=== PATIENT | female | born 1985 | race Caucasian/White ===

== ENCOUNTER → 2018-06-22 10:51 | Outpatient (CLI) | payer MEDICARE, MEDICAID, SELFPAY ==
[2018-06-22 11:32] LABS: Basophils # 0.1 K/mm3 (0-0.2); Basophils % 0.6 % (0.1-2.0); Eosinophils # 0.2 K/mm3 (0.0-0.4); Eosinophils % 2.3 % (0.1-12.0); Hematocrit 43.7 % (37.0-47.0); Hemoglobin 13.9 g/dL (12.2-16.2); Lymphocytes # 1.9 K/mm3 (0.7-4.5); Mean Corpuscular HGB Conc 31.9 g/dL (31.8-35.4); Mean Platelet Volume 7.4 fl (7.4-10.4); Monocytes # 0.4 K/mm3 (0.1-1.0); Monocytes % 5.7 % (1.7-9.3); Neutrophils # 5.2 K/mm3 (1.8-7.8); Neutrophils % 67.4 % (37.0-80.0); Platelet Count 294 K/mm3 (142-424); Red Blood Count 4.96 M/mm3 (4.20-5.40); Red Cell Distribution Width 13.7 % (11.5-17.5); White Blood Count 7.7 K/mm3 (4.8-10.8)
[2018-06-23 17:19] LABS: Vitamin D 25 Hydroxy 24.7 ng/mL (30.0-100.0)
[2018-06-26 08:22] LABS: Immunoglobulin E, Total 398 IU/mL (0-100)
== END ==
PROVIDERS: Visit Provider Allergy & Immunology
DX: E55.9 Vitamin D deficiency, unspecified (principal); J45.50 Severe persistent asthma, uncomplicated
CPT/HCPCS: 36415; 82652; 82785; 85025

== ENCOUNTER → 2018-08-30 13:52 | Outpatient (CLI) | payer MEDICARE, MEDICAID, SELFPAY ==
[2018-08-30 14:26] LABS: Basophils # 0.1 K/mm3 (0-0.2); Basophils % 0.9 % (0.1-2.0); Eosinophils # 0.2 K/mm3 (0.0-0.4); Eosinophils % 2.8 % (0.1-12.0); Hematocrit 44.7 % (37.0-47.0); Hemoglobin 14.4 g/dL (12.2-16.2); Lymphocytes # 1.7 K/mm3 (0.7-4.5); Lymphocytes % 21.1 % (10-50); Mean Corpuscular HGB Conc 32.3 g/dL (31.8-35.4); Mean Corpuscular Hemoglobin 28.5 pg (27.0-31.2); Mean Corpuscular Volume 88.4 fl (81-99); Mean Platelet Volume 8.1 fl (7.4-10.4); Monocytes # 0.4 K/mm3 (0.1-1.0); Monocytes % 4.9 % (1.7-9.3); Neutrophils # 5.5 K/mm3 (1.8-7.8); Neutrophils % 70.3 % (37.0-80.0); Platelet Count 327 K/mm3 (142-424); Red Blood Count 5.06 M/mm3 (4.20-5.40); Red Cell Distribution Width 13.6 % (11.5-17.5); White Blood Count 7.8 K/mm3 (4.8-10.8)
[2018-08-30 14:53] LABS: Alanine Aminotransferase 19 U/L (12-78); Albumin Level 3.5 gm/dL (3.4-5.0); Alkaline Phosphatase 78 U/L (46-116); Anion Gap 14.8 mEq/L (5-15); Aspartate Amino Transferase 14 U/L (15-37); Bilirubin,Total 0.2 mg/dL (0.2-1.0); Blood Urea Nitrogen 16 mg/dL (7-18); Calcium 9.3 mg/dL (8.5-10.1); Carbon Dioxide 26 mmol/L (21.0-32.0); Chloride 106 mmol/L (98-107); Chol/HDL Ratio 4.2 (1-3.5); Cholesterol 165 mg/dL (140-200); Estimated Glomerular Filt Rate 83 ml/min (>60); GFR (African American) 101 ML/MIN (>60); Globulin 3.5 gm/dl (1.3-3.2); Glucose 96 mg/dL (74-106); HDL Cholesterol 39 mg/dL (29-89); LDL Cholesterol 91 mg/dL (0-130); Potassium 3.8 mmoL/L (3.5-5.1); Sodium 143 mmol/L (136-145); T4 (Thyroxine) 13.2 ug/dl (4.7-13.3); Thyroid Stimulating Hormone 1.47 uIU/ml (0.358-3.740); Triglycerides 175 mg/dL (30-200); VLDL Cholesterol 35 mg/dL (0-40)
[2018-08-31 13:08] LABS: Folate 10.5 ng/mL (>3.0); Vitamin B12 204 pg/mL (232-1245); Vitamin D 25 Hydroxy 35.2 ng/mL (30.0-100.0)
== END ==
PROVIDERS: Visit Provider Physician Assistant
DX: R40.20 Unspecified coma (principal); R53.83 Other fatigue; I10 Essential (primary) hypertension
CPT/HCPCS: 80053; 80061; 82607; 82652; 82746; 84436; 84443; 85025

== ENCOUNTER → 2018-09-08 10:08 | Outpatient (CLI) | payer MEDICARE, MEDICAID, SELFPAY ==
--- NOTE | 2018-09-08 10:12 | CA_ITS ---
PROCEDURE: 2-D M-mode and color Doppler study INDICATIONS FOR THE TEST: Chest pain COPD Heart Murmur+ Tobacco Smoking Palpitations Fatigue Syncope+ Edema Hypertension+Diabetes Mellitus Rheumatic Fever SOB MARTINEZ Obesity Hyperlipidemia Family History HD Additional History PATIENT INFORMATION HEIGHT: 61 WEIGHT:160 GENDER: Female B/P:132/72 2-D/M-MODE INTERPRETATION: 2-D MEASUREMENTS OBSERVED VALUES IN CMS Right Ventricular Dimension (RVDd) 1.5 Interventricular Septum (Thickness)(IVsd) 0.9 Left Ventricular Internal Dimensions(LVIDd) 4.7 Left Ventricular Posterior Wall (Thickness)(LVPWd) 0.6 Aortic Root 1.9 Aortic Cusp Separation 1.6 Left Atrial Dimensions (LAD) 3.8 2D 1. Left atrium is normal size, left ventricle is normal size, there is no concentric left ventricular hypertrophy, visually estimated ejection fraction 55% with no regional wall motion abnormality. 2. The right atrium and right ventricle are normal size and contractility. 3. The aortic valve is thickened and calcified trileaflet aortic valve, there is no restriction the leaflet mobility. 4. The mitral and tricuspid valve are grossly normal. 5. The pulmonic valve is poorly present. 6. No significant pericardial effusion noted. DOPPLER INTERROGATION: Doppler interrogation of the aortic, mitral and tricuspid valvular presence of mild aortic, mild mitral and tricuspid regurgitation, tricuspid regurgitation jet velocity is inadequate for calculation of the right ventricular systolic pressure, diastolic parameters are within normal range. Inferior vena cava is normal size with normal inspiratory collapse. CONCLUSION: 1. Normal left ventricular size, preserved left ventricular systolic function, visually estimated ejection fraction 55% with no regional wall motion abnormality. Diastolic parameters are within normal range. 2. Minimally thickened and calcified aortic valve without Doppler evidence of aortic stenosis, there is mild aortic insufficiency. 3. Mild mitral and tricuspid regurgitation 4. No significant pericardial effusion noted.
== END ==
PROVIDERS: PCP Emergency Medicine; Visit Provider Physician Assistant
DX: R01.1 Cardiac murmur, unspecified (principal)
CPT/HCPCS: 93306

== ENCOUNTER → 2018-09-25 08:57 | Outpatient (CLI) | payer MEDICARE, MEDICAID, SELFPAY | PROVIDERS: Visit Provider Urology | DX: I10 Essential (primary) hypertension (principal); I35.1 Nonrheumatic aortic (valve) insufficiency; R06.02 Shortness of breath; R07.9 Chest pain, unspecified | CPT/HCPCS: 93017 ==

== ENCOUNTER → 2018-10-10 13:53 | Outpatient (CLI) | payer MEDICARE, MEDICAID, SELFPAY | PROVIDERS: PCP Family Medicine; Visit Provider Urology | DX: R55 Syncope and collapse (principal) | CPT/HCPCS: 93270 ==

== ENCOUNTER 2021-12-20 14:00 | Emergency (ER) | payer MEDICARE, MEDICAID, SELFPAY ==
[2021-12-20 14:09] VITALS: BP 185/104; PULSE 66; RESP 15; TEMP 37; O2SAT 99; BMI 24.7
[2021-12-20 14:50] VITALS: BP 169/95; PULSE 66; RESP 15; TEMP 37; O2SAT 99; BMI 24.8
--- NOTE | 2021-12-20 14:50 | HMH.EDUTC ---
[facility] [place] Disposition Clinical Impression: Viral syndrome, Elevated blood pressure reading, Gastroenteritis Disposition: Home, Self-Care Condition on Discharge: Good Instructions: Viral Gastroenteritis, DI for Viral Gastroenteritis -- Adult Additional Instructions: Drink plenty of fluids. Take tylenol or ibuprofen for pain or fever. Take the medications as directed. Follow up with your regular doctor. GO TO THE ER FOR ANY WORSENING SYMPTOMS FOLLOW UP WITH YOUR PRIMARY CARE PHYSICIAN TOMORROW REGARDING YOUR ELEVATED BLOOD PRESSURE. Prescriptions: Ondansetron [Zofran 4mg ODT] 4 mg PO Q8HP PRN #12 tab PRN Reason: Nausea Transmission Status: Received by [facility] Referrals: Rambo Chavez MD [Primary Care Provider] - Time of Disposition: 15:41 Medical Decision Making - Medical Records Medical records reviewed: No: I reviewed the patient's medical records. - Robe Inquiry Pt receiving controlled substance: No Vital Signs: 12/20/21 14:09 12/20/21 14:50 12/20/21 15:43 Temperature 98.6 F 98.6 F 98.6 F Temperature Source Oral Oral Pulse Rate 66 Pulse Rate [Right Radial] 66 66 Respiratory Rate 15 15 15 Blood Pressure 169/95 H Blood Pressure [Right Arm] 185/104 H 169/95 H Blood Pressure Mean [Right Arm] 131 119 Blood Pressure Source [Right Arm] Automatic Cuff Automatic Cuff Blood Pressure Position [Right Arm] Sitting Sitting 02 Sat by Pulse Oximetry 99 99 Oxygen Delivery Method Room Air - Lab Data Lab Results 12/20/21 14:54: Chlamy pneumoniae PCR Not detected, Adenovirus (PCR) Not detected, B. pertussis DNA (PCR) Not detected, Coronavirus OC43 (PCR) Not detected, Coronavirus HKU1 (PCR) Not detected, Coronavirus 229E (PCR) Not detected, SARS-CoV-2 (PCR) Not detected, Coronavirus NL63 (PCR) Not detected, Human Metapneumovir PCR Not detected, Influenza A (H1) PCR Not detected, Influ A (H1N1/09) PCR Not detected, Influenza A (H3) PCR Not detected, Influenza Type A (PCR) Not detected, Influenza Type B (PCR) Not detected, M. pneumoniae (PCR) Not detected, Parainfluenza 1 (PCR) Not detected, Parainfluenza 2 (PCR) Not detected, Parainfluenza 3 (PCR) Not detected, Parainfluenza 4 (PCR) Not detected, RSV (PCR) Not detected, Entero/Rhino (PCR) Not detected [facility] [place] HPI - General Stated complaint: vomiting, weakness, elevated bp Time Seen by Provider: 12/20/21 14:50 Mode of Arrival: Ambulatory Source of Information: Patient Limitations: No Limitations Description of Symptoms (Recalled from Triage Doc. by RN): C/O N/V, sinus drainage, altered smell, elevated BP x2 days. States that she was exposed to mother who has COVID - History of Present Illness Provider Complaint: She is here with c/o of feeling bad for the past 2 days. She has had sinus congestion and a sore scratchy throat. She also has been having elevated blood pressures. She has been prescribed blood pressure medication in the past but she did not take the medication because it made her feel bad at the time. - Related Data Home Medications Medication Instructions Recorded Confirmed montelukast 10 mg tablet 10 mg PO DAILY 30 Days #30 tab 01/31/18 12/31/20 albuterol sulfate 90 mcg/actuation 2 inh INHALATION Q6H PRN 12/18/19 12/31/20 breath activated powder inhaler budesonide-formoterol HFA 160 2 puff INHALATION BID 12/18/19 12/31/20 mcg-4.5 mcg/actuation aerosol inhaler Previous Rx's Medication Instructions Recorded Ondansetron [Zofran 4mg ODT] 4 mg PO Q8HP PRN #12 tab 12/20/21 Allergies Allergy/AdvReac Type Severity Reaction Status Date / Time shellfish derived Allergy Verified 12/20/21 15:08 [facility] History - Hepatitis A Screen Attestation statement:: This patient has been screened for Hepatitis A risk factors. I have reviewed the patient's past medical history: Yes Medical History: Reports:: Anxiety, Asthma, Depression, Heart Murmur, Hypertension Denies:: Diabetes Martha
[2021-12-20 15:03] LABS: Adenovirus,PCR Not Detected (NotDetected); Bordetella Pertussis Not Detected (NotDetected); Chlamydophila Pneumoniae, PCR Not Detected (NotDetected); Coronavirus 19, PCR Not Detected (NotDetected); Coronavirus 229E Not Detected (NotDetected); Coronavirus NL63 Not Detected (NotDetected); Coronavirus OC43 Not Detected (NotDetected); Coronovirus HKU1,PCR Not Detected (NotDetected); Human Metapneumovirus Not Detected (NotDetected); Influenza A, PCR Not Detected (NotDetected); Influenza AH1, 2009 Not Detected (NotDetected); Influenza AH1, PCR Not Detected (NotDetected); Influenza AH3,PCR Not Detected (NotDetected); Influenza B, PCR Not Detected (NotDetected); Mycoplasma Pneumoniae, PCR Not Detected (NotDetected); Parainfluenza 1, PCR Not Detected (NotDetected); Parainfluenza 2, PCR Not Detected (NotDetected); Parainfluenza 3, PCR Not Detected (NotDetected); Parainfluenza 4, PCR Not Detected (NotDetected); Respiratory Syncytial Virus Not Detected (NotDetected); Rhinovirus/Enterovirus Not Detected (NotDetected)
[2021-12-20 15:43] VITALS: BP 169/95; PULSE 66; RESP 15; TEMP 37; O2SAT 99
== END 2021-12-20 15:48 | disposition home or self-care (01) ==
LOC: ER 14:10 → UTC 14:11
PROVIDERS: Emergency Provider Nurse Practitioner Family; PCP Family Medicine
DX: K52.9 Noninfective gastroenteritis and colitis, unspecified (principal); B34.9 Viral infection, unspecified; R03.0 Elevated blood-pressure reading, without diagnosis of hypertension; Z20.822 Contact with and (suspected) exposure to COVID-19; R11.10 Vomiting, unspecified; R53.1 Weakness; R43.8 Other disturbances of smell and taste
CPT/HCPCS: 87581; 87632; 87798; C9803; U0003; U0005

== ENCOUNTER 2022-07-03 15:15 | Emergency (ER) | payer MEDICARE, MEDICAID, SELFPAY ==
[2022-07-03 16:00] VITALS: BP 160/95; PULSE 82; RESP 20; TEMP 37.6; O2SAT 98; BMI 30.8
--- NOTE | 2022-07-03 16:02 | EXP.UTC ---
Discharge Plan Disposition Patient Disposition: Home, Self-Care Condition: Good Prescriptions Prescriptions: New azithromycin [Zithromax] 250 mg tablet 250 mg PO UD DOSE PK Qty: 6 0RF Rx Instructions: Take two (2) tablets today, then one (1) tablet days #2 thru #5 benzonatate [benzonatate] 100 mg capsule 100 mg PO TIDP PRN (Reason: Cough) Qty: 30 0RF methylprednisolone 4 mg Tablets,Dose Pack 4 mg PO DIRECTED Qty: 21 0RF No Action montelukast 10 mg tablet 10 mg PO DAILY 30 Days Qty: 30 albuterol sulfate 90 mcg/actuation aerosol powdr breath activated 2 inh INHALATION Q6H PRN budesonide-formoterol [Symbicort] 160-4.5 mcg/actuation HFA aerosol inhaler 2 puff INHALATION BID Referrals Follow up/Referrals: Rambo Chavez MD [Primary Care Provider] - See instructions Activity Restrictions/Add. Instructions Additional Instructions/Restrictions: Drink plenty of fluids. Take tylenol or ibuprofen for pain or fever. Take the medications as directed. Follow up with your regular doctor. GO TO THE ER FOR ANY WORSENING SYMPTOMS Clinical Impressions Clinical Impression: Otitis media, Sinusitis Instructions Patient Instructions: Sinusitis, DI for Sinusitis Discharge ED Provider: [facility] General Stated complaint: Congestion; ear ache; right side pain Time Seen by Provider: 07/03/22 16:02 History of Present Illness Provider Complaint: She states that for the past 3 days she has had sinus congestion, sore throat, and bilateral ear pain. Related Data Home Medications Medication Instructions Recorded Confirmed montelukast 10 mg tablet 10 mg PO DAILY 30 days #30 tabs 01/31/18 06/29/22 albuterol sulfate 90 mcg/actuation 2 inh inhalation Q6H PRN 12/18/19 06/29/22 breath activated powder inhaler budesonide-formoterol HFA 160 2 puff inhalation BID 12/18/19 06/29/22 mcg-4.5 mcg/actuation aerosol inhaler (Symbicort) Previous Rx's Medication Instructions Recorded azithromycin 250 mg tablet 250 mg PO UD DOSE PK #6 tabs 07/03/22 (Zithromax) benzonatate 100 mg capsule 100 mg PO TIDP PRN Cough #30 caps 07/03/22 methylprednisolone 4 mg tablets in 4 mg PO DIRECTED #21 tabs 07/03/22 a dose pack Allergies Allergy/AdvReac Type Severity Reaction Status Date / Time shellfish derived Allergy Verified 07/03/22 16:13 [facility] Disclaimer: The information contained in this section may have been updated after the patient was seen, as this information can be updated by other users. Medical History Aortic insufficiency Cardiac murmur Chest pain HTN (hypertension) SOB (shortness of breath) Social History Smoking Status: Never smoker alcohol intake: never substance use type: denies use current occupational status: unemployed and disabled Travel in the last 8 weeks: Inside the [place] ROS Obtained: Yes All systems reviewed & no additional complaints except as documented Constitutional Constitutional: Denies chills, Reports fever(s) and Reports poor appetite Eyes Eyes: Denies eye discharge ENT Ears, Nose, Mouth, and Throat: Denies ear discharge, Reports otalgia, Denies hearing loss, Denies sinus pain and Reports sore throat Cardiovascular Cardiovascular: Denies chest pain and Denies dyspnea Respiratory Respiratory: Denies chest congestion, Reports cough and Denies dyspnea Gastrointestinal Gastrointestingal: Denies abdominal pain, diarrhea, nausea or vomiting Musculoskeletal Musculoskeletal: Denies arthralgias Integumentary/Breasts Skin/Breast: Denies rash Physical Exam General General appearance: alert and in no apparent distress Head Head exam: atraumatic, normocephalic and normal inspection Eye Eye exam: Present normal appearance, PERRL and EOMI ENT ENT exam: Present mucous membranes moist and normal external
[2022-07-03 16:46] VITALS: BP 160/95; PULSE 82; RESP 20; TEMP 37.6; O2SAT 98
== END 2022-07-03 16:45 | disposition home or self-care (01) ==
PROVIDERS: Emergency Provider Nurse Practitioner Family; PCP Family Medicine
DX: H66.90 Otitis media, unspecified, unspecified ear (principal); J32.9 Chronic sinusitis, unspecified
CPT/HCPCS: 99212; 99213; G0463

== ENCOUNTER → 2022-08-27 14:04 | Outpatient (CLI) | payer MEDICARE, MEDICAID, SELFPAY ==
--- NOTE | 2022-08-27 14:11 | CA_ITS ---
APPROVED REPORT EXAM: Comprehensive 2D, Doppler, and color-flow Echocardiogram High Frequency Mill Operator: Suzanne Gordon RT(R) Ht: 5 ft 1 in Wt: 161lbs BSA: 1.72 BP: 154/73 mmHg Indications: AI, HTN, murmur, h/o CP 2D Dimensions LVOT 1.78 cm (M/F) 1.5-2.5 LVEF (Chavarria's) 61.90 % F: 54 - 74 LV Volume 86.80 mL F: 46 - 106 LV Volume Index 50.47 mL/m2 F: 29 - 61 LA Volume 23.50 mL LA Volume Index 13.66 mL/m2 (M/F) 16-34 M-Mode Dimensions RVDd 2.72 cm (0.9-2.6) LA Diam 3.83 cm (1.9-4.0) LVDd 4.01 cm (3.5-5.7) Ao Diam 2.35 cm (2.0-3.7) LVDs 2.85 cm (3.5-5.7) IVSd 0.84 cm (0.6-1.1) PWd 0.72 cm (0.6-1.1) EF (Teich) 56.10% FS 28.90% EDV (Teich) 70.40 mL ESV (Teich) 30.90 mL LV Diastology E Decel Time 227.00 (160-240 msec) E/A Ratio 1.3 MED E' 12.60 (< 7 cm/sec) E'/MED E' Ratio 9.52 (>14) LAT E' 14.40 (<10 cm/sec) E/LAT E' Ratio 8.33 (>14) Aortic Valve LVOT Max 133.00 (70-110 cm/s) LVOT VTI 26.11 cm AoV Peak Vladimir. 194.00 (50-130 cm/s) AO Peak GR. 15.10 mmHg AO Mean GR. 7.50 (<5 mmHg) AO VTI 37.73 (18-25 cm) KVNG (VTI) 1.72 (2.5-4.5 cm2) Mitral Valve MV E Max Vladimir. 120.00 (40-130 cm/s) MV A Velocity 95.00 (40-130 cm/s) E/A Ratio 1.26 MV Decel. Time 227.00 (160-240 ms) MV PHT 66.00 ms Left Ventricle Left atrium is mildly enlarged, left ventricle is normal size, estimated ejection fraction 55% with no regional wall motion abnormality, diastolic parameters are within normal range. Right Ventricle Right atrium and right ventricular normal size and contractility. Aortic Valve Aortic valve is minimally thickened, morphology of the aortic valve is not well visualized, there is no aortic stenosis, there is trace aortic insufficiency. Mitral Valve Mitral valve is grossly normal, there is trace mitral regurgitation. Tricuspid Valve Tricuspid grossly normal, there is trace tricuspid regurgitation, tricuspid regurgitation jet velocity is inadequate for calculation of the right ventricular systolic pressure. Pulmonic Valve Pulmonic valve is poorly visualized. Great Vessels Aortic root is normal size. Inferior vena cava is normal size with normal inspiratory collapse. Pericardium No significant pericardial effusion noted. Conclusion 1. Mildly in the left renal normal left ventricular size, estimated ejection fraction 55% with no regional wall motion abnormality, diastolic parameters are within normal range. 2. Trace aortic mitral and tricuspid regurgitation. 3. No significant pericardial effusion noted. 4. Inferior vena cava is normal size with normal inspiratory collapse. Electronically signed by : Oh Menon MD 08/27/2022 16:10:58
== END ==
PROVIDERS: PCP Family Medicine; Visit Provider Physician Assistant
DX: I10 Essential (primary) hypertension (principal); I35.1 Nonrheumatic aortic (valve) insufficiency; R01.1 Cardiac murmur, unspecified
CPT/HCPCS: 93306

== ENCOUNTER 2023-01-13 12:39 | Emergency (ER) | payer MEDICARE, SELFPAY ==
[2023-01-13 12:45] VITALS: BP 165/91; PULSE 66; RESP 16; TEMP 36.8; O2SAT 99; BMI 29.2
--- NOTE | 2023-01-13 12:58 | HMH.EDGENADL ---
Discharge Plan Disposition Patient Disposition: Home, Self-Care Prescriptions Prescriptions: No Action montelukast 10 mg tablet 10 mg PO DAILY 30 Days Qty: 30 albuterol sulfate 90 mcg/actuation aerosol powdr breath activated 2 inh INHALATION Q6H PRN budesonide-formoterol [Symbicort] 160-4.5 mcg/actuation HFA aerosol inhaler 2 puff INHALATION BID Referrals Follow up/Referrals: Cornell Shankar MD [Primary Care Provider] - See instructions Activity Restrictions/Add. Instructions Additional Instructions/Restrictions: You have plantar fasciitis severe right lower extremity. Most importantly need to get good supportive shoes or get orthotic implants as we discussed. You may go to [facility] in [place] they are experts in this area if you would like to have specifically made orthotics for your shoes. Ice the area take anti-inflammatory medications. You may take 800 mg of ibuprofen 3 times a day for the next week to improve your pain. You may take Tylenol as well. Return with any spreading redness injuries or other concerns. Clinical Impressions Clinical Impression: Plantar fasciitis, right Discharge ED Provider: Nagi Linares General Adult HPI General Chief complaint: Extremity Injury, Lower Stated complaint: pain in Rt ankle/leg, no known accident Time Seen by Provider: 01/13/23 12:52 Mode of Arrival: Ambulatory Source of Information: Patient Limitations: No Limitations Description of Symptoms (Recalled from ER Triage Doc. by RN): Presents via POV d/t worsening right foot pain/swelling for the past few months. Pt reports old injury, December 07, 2021 where she stepped off a porch and heard a pop . Tx OTC Asa and soaking in water with mild improvement. Pt able to tolerate weight bearing. History of Present Illness HPI narrative: 37-year-old female here with pain on the bottom aspect of plantar aspect of her right foot. This has been going on since December 07, 2021. She has had no new injuries since that time. She has been taking [id number] medications and soaking it in water without any improvement. She denies any spreading redness. No inability to tolerate weightbearing. This is the first time she seen the physician for this. She has no ankle or dorsal foot pain. Dull localized to the plantar region. Related Data Home Medications Medication Instructions Recorded Confirmed montelukast 10 mg tablet 10 mg PO DAILY 30 days #30 tabs 01/31/18 12/29/22 albuterol sulfate 90 mcg/actuation 2 inh inhalation Q6H PRN 12/18/19 12/29/22 breath activated powder inhaler budesonide-formoterol HFA 160 2 puff inhalation BID 12/18/19 12/29/22 mcg-4.5 mcg/actuation aerosol inhaler (Symbicort) Allergies Allergy/AdvReac Type Severity Reaction Status Date / Time shellfish derived Allergy Verified 12/29/22 10:38 [facility] Disclaimer: The information contained in this section may have been updated after the patient was seen, as this information can be updated by other users. Medical History Aortic insufficiency Cardiac murmur Chest pain HTN (hypertension) SOB (shortness of breath) Social History Smoking Status: Never smoker alcohol intake: never substance use type: denies use current occupational status: unemployed and disabled Travel in the last 8 weeks: Inside the [place] ROS Obtained: Yes All systems reviewed & no additional complaints except as documented Physical Exam General General appearance: alert Respiratory Respiratory exam: Present normal lung sounds bilaterally; Absent respiratory distress Cardiovascular Cardiovascular exam: Present regular rate; Absent tachycardia Extremities Exam Extremities exam: Present other (Tenderness over the plantar fascia of the right lower extremity no significant soft tissue swelling erythema or tenderness in ot
[2023-01-13 13:03] VITALS: BP 152/85; PULSE 65; RESP 16; TEMP 36.6; O2SAT 96
--- NOTE | 2023-01-13 13:03 | PC.NURSE ---
Azar applied to right foot/ankle. Pt tolerated well.
== END 2023-01-13 13:05 | disposition home or self-care (01) ==
PROVIDERS: Emergency Provider Student in an Organized Health Care Education/Training Program; PCP Family Medicine
DX: M72.2 Plantar fascial fibromatosis (principal); M79.661 Pain in right lower leg; R01.1 Cardiac murmur, unspecified; I35.1 Nonrheumatic aortic (valve) insufficiency; I10 Essential (primary) hypertension; G89.29 Other chronic pain
CPT/HCPCS: 99282

== ENCOUNTER → 2023-05-24 23:00 | Outpatient (CLI) | payer MEDICARE, SELFPAY | PROVIDERS: PCP Student in an Organized Health Care Education/Training Program; Visit Provider Student in an Organized Health Care Education/Training Program | DX: R05.9 Cough, unspecified (principal) | CPT/HCPCS: 87635 ==

== ENCOUNTER 2023-07-04 10:11 | Outpatient (CLI) | payer MEDICARE, SELFPAY ==
[2023-07-04 10:26] LABS: Basophils # 0.1 K/mm3 (0-0.2); Basophils % 0.9 % (0.1-2.0); Eosinophils # 1.3 K/mm3 (0.0-0.4); Eosinophils % 11.3 % (0.1-12.0); Hematocrit 40.8 % (37.0-47.0); Hemoglobin 14.6 g/dL (12.2-16.2); Lymphocytes # 2.5 K/mm3 (0.7-4.5); Lymphocytes % 21.7 % (10-50); Mean Corpuscular HGB Conc 35.9 g/dL (31.8-35.4); Mean Corpuscular Hemoglobin 31.2 pg (27.0-31.2); Mean Platelet Volume 8.2 fl (7.4-10.4); Monocytes # 0.5 K/mm3 (0.1-1.0); Monocytes % 4.4 % (1.7-9.3); Neutrophils # 7.2 K/mm3 (1.8-7.8); Neutrophils % 61.8 % (37.0-80.0); Platelet Count 252 K/mm3 (142-424); Red Blood Count 4.69 M/mm3 (4.20-5.40); Red Cell Distribution Width 13.9 % (11.5-17.5); White Blood Count 11.7 K/mm3 (4.8-10.8)
[2023-07-04 10:48] LABS: Alanine Aminotransferase 20 U/L (12-78); Albumin Level 3.5 g/dl (3.5-5.0); Alkaline Phosphatase 72 U/L (38-126); Anion Gap 10.9 mEq/L (5-15); Aspartate Amino Transferase 22 U/L (14-36); Blood Urea Nitrogen 15 mg/dl (7-17); Calcium 8.9 mg/dl (8.4-10.2); Carbon Dioxide 25 mmol/L (22.0-30.0); Chloride 109 mmol/L (98-107); Chol/HDL Ratio 4.3 (1-3.5); Cholesterol 146 mg/dl (140-200); Estimated Glomerular Filt Rate 94 ml/min (>60); GFR (African American) 114 ML/MIN (>60); Glucose 94 mg/dl (74-100); HDL Cholesterol 34 mg/dl (40-60); Magnesium 1.9 mg/dl (1.6-2.3); Potassium 3.9 mmoL/L (3.5-5.1); Sodium 141 mmol/L (136-145); Triglycerides 205 mg/dl (30-150); VLDL Cholesterol 41 mg/dL (0-40)
[2023-07-04 11:05] LABS: Direct LDL Cholesterol 86.76 mg/dL (100-129); Free T4 (Free Thyroxine) 1.18 ng/dl (0.78-2.19)
[2023-07-04 11:19] LABS: Thyroid Stimulating Hormone 2.22 uIU/mL (0.465-4.68)
[2023-07-04 12:14] LABS: Bilirubin,Direct 0.3 mg/dl (0.0-0.4); Bilirubin,Total 0.3 mg/dl (0.2-1.3)
== END 2023-07-04 23:59 ==
LOC: LAB 10:12
PROVIDERS: PCP Family Medicine; Visit Provider Nurse Practitioner
DX: I10 Essential (primary) hypertension (principal); I35.1 Nonrheumatic aortic (valve) insufficiency; Z79.899 Other long term (current) drug therapy
CPT/HCPCS: 36415; 80048; 80061; 80076; 83735; 84439; 84443; 85025

== ENCOUNTER 2023-12-04 13:37 | Emergency (ER) | payer MEDICARE, SELFPAY ==
[2023-12-04 13:38] VITALS: BP 189/89; PULSE 63; RESP 20; TEMP 36.9; O2SAT 99; BMI 31.3
--- NOTE | 2023-12-04 13:49 | PC.NURSE ---
DR HYATT AT BEDSIDE
--- NOTE | 2023-12-04 13:51 | HMH.EDGENADL ---
Discharge Plan Disposition Patient Disposition: Home, Self-Care Condition: Good Prescriptions Prescriptions: New amoxicillin-pot clavulanate 875-125 mg tablet 1 tab PO BID Qty: 20 0RF No Action montelukast 10 mg tablet 10 mg PO DAILY 30 Days Qty: 30 albuterol sulfate 90 mcg/actuation aerosol powdr breath activated 2 inh INHALATION Q6H PRN budesonide-formoterol [Symbicort] 160-4.5 mcg/actuation HFA aerosol inhaler 2 puff INHALATION BID fluticasone propionate 50 mcg/actuation spray,suspension intranasal levocetirizine 5 mg tablet 5 mg PO DAILY polymyxin B sulf-trimethoprim 10,000 unit- 1 mg/mL drops 1 drp ophthalmic (eye) Q3H 7 Days Qty: 10 0RF Rx Instructions: while awake; do not exceed 6 doses in 24 hours bisoprolol fumarate 5 mg tablet 5 mg PO DAILY Qty: 90 3RF Referrals Follow up/Referrals: Provider,Referral, MD [Primary Care Provider] - See instructions Activity Restrictions/Add. Instructions Additional Instructions/Restrictions: You were evaluated in the emergency department today. Please use peroxide twice a day in your left ear to try and loosen up the wax ball that is stuck there. Follow-up with ENT for reassessment. car supplier your prescription for antibiotics and take the full course at home for your ear infection. Return to the emergency department for new or worsening symptoms. Clinical Impressions Clinical Impression: Impacted cerumen of left ear, Acute left otitis media Stand Alone Forms Stand Alone Forms: Work/School Release Instructions Patient Instructions: DI for Cerumen Impaction, DI for Otitis Media (Middle Ear Infection)-Child Discharge ED Provider: Marilee King General Adult HPI General Chief complaint: Ear Stated complaint: Pain in L ear and jaw Time Seen by Provider: 12/04/23 13:45 Mode of Arrival: Ambulatory Source of Information: Patient Limitations: No Limitations Description of Symptoms (Recalled from ER Triage Doc. by RN): patient is here today for left ear pain since tuesday and then yesterday the pain started radiating down into her jaw. pt took ASA for otc pain relief and has not been swimming recently or have any issues with her ears History of Present Illness HPI narrative: This patient is a 37-year-old female with a history of hypertension presenting to the emergency department for evaluation with concern for left ear pain radiating into her jaw. It has been going on approximately 5 days. She notes that she took aspirin [id number] for pain with some relief. She also notes mild drainage from the left ear. She also notes mild congestion. No fever, drooling, trismus, dysphagia, or other concerns. Related Data Home Medications Medication Instructions Recorded Confirmed montelukast 10 mg tablet 10 mg PO DAILY 30 days #30 tabs 01/31/18 07/18/23 albuterol sulfate 90 mcg/actuation 2 inh inhalation Q6H PRN 12/18/19 07/18/23 breath activated powder inhaler budesonide-formoterol HFA 160 2 puff inhalation BID 12/18/19 07/18/23 mcg-4.5 mcg/actuation aerosol inhaler (Symbicort) fluticasone propionate 50 intranasal 05/24/23 07/18/23 mcg/actuation nasal spray,suspension levocetirizine 5 mg tablet 5 mg PO DAILY 05/24/23 07/18/23 Previous Rx's Medication Instructions Recorded polymyxin B sulfate 10,000 1 drp ophthalmic (eye) Q3H 7 days 05/24/23 unit-trimethoprim 1 mg/mL eye drops #10 mL bisoprolol fumarate 5 mg tablet 5 mg PO DAILY #90 tabs 07/18/23 amoxicillin 875 mg-potassium 1 tab PO BID #20 tabs 12/04/23 clavulanate 125 mg tablet Allergies Allergy/AdvReac Type Severity Reaction Status Date / Time shellfish derived Allergy Verified 07/18/23 10:23 [facility] Disclaimer: The information contained in this section may have been updated after the patient was seen, as this information can be updated by other users. Medical History Cardiac murmur SOB (shortness of breath) HTN (hypertension) Chest pain Aortic insufficiency Surgical History No significant past surgical history Family History Other No significant family history Social History Smoking Status: Never smoker alcohol intake: never substance use type: denies use current occupational status: unemployed and disabled Travel in the last 8 weeks: Inside the [place] ROS Obtained: Yes All systems reviewed & no additional complaints except as documented Physical Exam General General appearance: alert and in no apparent distress Head Head exam: atraumatic and normocephalic Eye Eye exam: Present normal appearance, PERRL and EOMI ENT ENT exam: Present normal oropharynx, mucous membranes moist, normal external ear exam and other (cerumen impaction L ear) Neck Neck exam: Present normal inspection, full ROM and trachea midline; Absent tenderness Chest Chest inspection: Present normal inspection and symmetric chest wall rise; Absent tenderness Respiratory Respiratory exam: Present normal lung sounds bilaterally; Absent respiratory distress, wheezes, stridor or accessory muscle use Cardiovascular Cardiovascular exam: Present regular rate and normal rhythm Abdominal Exam Abdominal exam: Present soft; Absent distention, tenderness or guarding Extremities Exam Extremities exam: Present normal inspection, full ROM and normal capillary refill; Absent tenderness or edema Back Exam Back exam: Present normal inspection and full ROM; Absent tenderness Neurological Exam Neurological exam: Present alert, oriented X3, CN II-XII intact and normal gait; Absent motor sensory deficit Psychiatric Psychiatric exam: Present normal affect and normal mood Skin Skin exam: Present warm and dry Medical Decision Making Medical Records Medical records reviewed: Yes I reviewed the patient's medical records. Robe Inquiry Pt receiving controlled substance: No Vital Signs: 12/04/23 13:38 12/04/23 14:46 Temperature 98.5 F 98.0 F Temperature Source Oral Pulse Rate 70 Pulse Rate [Right Radial] 63 Respiratory Rate 20 16 Blood Pressure 160/80 H Blood Pressure [Right Arm] 189/89 H Blood Pressure Mean [Right Arm] 122 02 Sat by Pulse Oximetry 99 Oxygen Delivery Method Room Air Room Air Lab Data Lab results reviewed: Yes I reviewed the patient's lab results. Orders (Tests/Meds): ED MEDICATIONS Discontinued Medications Generic Name Dose Route Start Last Admin Trade Name Freq PRN Reason Stop Dose Admin Amoxicillin/Clavulanate Potassium 1 each 12/04/23 14:35 12/04/23 14:41 Amoxicillin/Clavulanate Potassium 875/125mg Tablet PO 12/04/23 14:36 1 each ONCE ONE Administration Docusate Sodium 10 ml 12/04/23 13:59 12/04/23 14:05 Docusate Sodium 10 Ml/Udc Udc PO 12/04/23 14:00 10 ml ONCE ONE Administration Ondansetron HCl 4 mg 12/04/23 14:35 12/04/23 14:42 Ondansetron 4mg Odt SL 12/04/23 14:36 4 mg ONCE ONE Administration Medical Decision Narrative: In summary, this patient is a 37-year-old female presenting to the Emergency Department for evaluation of left ear pain. Differential diagnoses considered include but are not limited to otitis media, otitis externa, cerumen impaction. Ruling out the most morbid conditions drove assessment. On exam, patient has cerumen impaction. I tried to remove it with a cuvette but this was not successful. Given this, Colace was applied to the ear and the ear was irrigated. This did move the wax ball so that I can visualize her TM, which is erythematous and bulging. I was not able to fully remove all of the wax. Given this, I gave instructions for use for peroxide at home to help with cleanout as well as prescription for Augmentin to treat otitis media. She was given instructions for supportive management and close follow-up with primary care versus ENT. Strict return precautions were given and patient was discharged. Critical Care Critical Care Time Critical Care Time: No
[2023-12-04] MEDS: DOCUSATE SODIUM 10 ML/UDC UDC PO (14:05)
--- NOTE | 2023-12-04 14:30 | PC.NURSE ---
dr cao at bedside to reevaluate pt
[2023-12-04] MEDS: AMOXICILLIN/CLAVULANATE POTASSIUM 875/125MG TABLET 1 EACH PO (14:41)
[2023-12-04] MEDS: ONDANSETRON 4MG ODT 4 MG SL (14:42)
[2023-12-04 14:46] VITALS: BP 160/80; PULSE 70; RESP 16; TEMP 36.7; O2SAT 97
== END 2023-12-04 14:47 | disposition home or self-care (01) ==
PROVIDERS: Emergency Provider Emergency Medicine
DX: H66.92 Otitis media, unspecified, left ear (principal); H92.02 Otalgia, left ear; H61.22 Impacted cerumen, left ear
CPT/HCPCS: 99283

== ENCOUNTER 2024-03-16 15:20 | Emergency (ER) | payer MEDICARE, MEDICAID, SELFPAY ==
[2024-03-16 15:40] VITALS: BP 158/94; PULSE 64; RESP 19; TEMP 37.2; O2SAT 98; BMI 30.2
--- NOTE | 2024-03-16 15:49 | EXP.UTC ---
Discharge Plan Disposition Patient Disposition: Home, Self-Care Condition: Good Prescriptions Prescriptions: New cefdinir 300 mg capsule 300 mg PO BID Qty: 20 0RF phenazopyridine [Pyridium] 200 mg tablet 200 mg PO Q8H 2 Days Qty: 6 0RF Referrals Follow up/Referrals: Cornell Shankar MD [Primary Care Provider] - See instructions Activity Restrictions/Add. Instructions Additional Instructions/Restrictions: *Increase fluids. Water not Soda or Tea *Start antibiotic immediately and be sure to take as ordered for the FULL length of time although you should start to see improvement over the next 48 hours *Pyridium as needed Remember this medication will turn your urine . This is normal but it will stain what ever it gets on *You should not use Pyridium for more than 48 hours. If so , follow up with your primary physician to review urine culture and ensure that antibiotic is adequate for infection *Be SURE to follow up anytime for new or worsening symptoms with your family doctor. AND in 48 hours for urine culture results with your family doctor, if you do not have a doctor then you may call back to the [facility] for urine culture results and further treatment. We do recommend that you choose and establish care with a Primary Care Physician. ?AND follow up with them ?in 10-14 days to repeat UA to ensure infection is resolved and blood no longer present *Be sure to let your PCP know that we sent urine cultures from the [facility] so they can follow up to ensure that you area the on the correct antibiotic Call your doctor office and make appointment for 48 hours (2 days from today) ?to follow up and get the results of your urine culture and further treatment Clinical Impressions Clinical Impression: Urinary tract infection Instructions Patient Instructions: DI for Urinary Tract Infection (UTI), Urinary Tract Infection, Cefdinir, Phenazopyridine Print Language Print Language: Beninese Discharge ED Provider: Ava Amaro [facility] HPI General Stated complaint: Pain in vaginal area Mode of Arrival: Ambulatory Source of Information: Patient Limitations: No Limitations Time Seen by Provider: 03/16/24 15:50 Description of Symptoms (Recalled from Triage Doc. by RN): PATIENT C/O PAIN TO GENITAL AREA AND DIFFICULTY URINATING THAT STARTED TODAY. SHE STATES PAIN OCCURS WITH MOVEMENT HEENT Symptoms (Recalled from RN notes): No Resp Symptoms (Recalled from RN notes): No Skin Symptoms (Recalled from RN notes): No MS Symptoms (Recalled from RN notes): No Functional Status (Recalled from RN notes): WNL History of Present Illness Provider Complaint: Patient states that she woke up this morning with pain and pressure in her lower abdomen and hurting/burning in her private area when she would urinate States that she is having pressure when she tries to urinate so she came in to get checked Denies hx of Kidney stones, denies fever, denies chills, Denies N/V States it is time for her period Related Data Previous Rx's ?Medication ?Instructions ?Recorded cefdinir 300 mg capsule 300 mg PO BID #20 caps 03/16/24 phenazopyridine 200 mg tablet 200 mg PO Q8H pain 2 days #6 tabs 03/16/24 (Pyridium) Allergies Allergy/AdvReac Type Severity Reaction Status Date / Time shellfish derived Allergy Verified 07/18/23 10:23 Worker's Comp Is this a Worker's Comp case?: No [facility] Disclaimer: The information contained in this section may have been updated after the patient was seen, as this information can be updated by other users. Medical History Cardiac murmur SOB (shortness of breath) HTN (hypertension) Chest pain Aortic insufficiency Surgical History No significant past surgical history Family History Other No significant family history Social History Smoking Status: Never smoker alcohol intake: never substance use type: denies use current occupational status: unemployed and disabled Travel in the last 8 weeks: Inside the [place] ROS Obtained: Yes All systems reviewed & no additional complaints except as documented and Yes Systems reviewed as appropriate & no additional complaints except as documented Constitutional Constitutional: Reports system reviewed and no additional complaints, except as documented, Reports as per HPI, Denies body ache, Denies chills, Denies fever(s) and Denies headache(s) ENT Ears, Nose, Mouth, and Throat: Reports system reviewed and no additional complaints, except as documented, Reports as per HPI and Denies headache(s) Cardiovascular Cardiovascular: Reports system reviewed and no additional complaints, except as documented and Reports as per HPI Respiratory Respiratory: Reports system reviewed and no additional complaints, except as documented and Reports as per HPI Gastrointestinal Gastrointestingal: Reports system reviewed and no additional complaints, except as documented and as per HPI; Denies abdominal pain (reports pressure like pain) Genitourinary Female Genitourinary: Reports system reviewed and no additional complaints, except as documented, Reports as per HPI, Reports dysuria, Reports urinary frequency and Reports urinary urgency Musculoskeletal Musculoskeletal: Reports system reviewed and no additional complaints, except as documented and Reports as per HPI Neurologic Neurologic: Reports system reviewed and no additional complaints, except as documented, Reports as per HPI and Denies headache(s) Physical Exam General General appearance: alert and in no apparent distress ENT ENT exam: Present mucous membranes moist Respiratory Respiratory exam: Present normal lung sounds bilaterally; Absent respiratory distress or wheezes Cardiovascular Cardiovascular exam: Present regular rate, normal rhythm and normal heart sounds Abdominal Exam Abdominal exam: Present soft and normal bowel sounds; Absent distention, tenderness, guarding, rebound or rigidity Neurological Exam Neurological exam: Present alert, oriented X3 and normal gait Medical Decision Making Medical Records Screening: Per USPSTF and CDC recommendations, given the prevalence of disease in our region, it is our hospital?s policy to screen for HIV and viral Hepatitis for all patients aged 18 and over and those with ongoing risk factors. Robe Inquiry Pt receiving controlled substance: No Robe was queried for this patient: No Vital Signs: 03/16/24 15:40 Temperature 98.9 F Temperature Source Oral Pulse Rate [Left Brachial] 64 Respiratory Rate 19 Blood Pressure [Left Arm] 158/94 H Blood Pressure Mean [Left Arm] 115 Blood Pressure Source [Left Arm] Automatic Cuff Blood Pressure Position [Left Arm] Sitting 02 Sat by Pulse Oximetry 98 Oxygen Delivery Method Room Air Lab Data Lab results reviewed: Yes I reviewed the patient's lab results. Orders (Tests/Meds): ORDERS Category Date Time Status UA [Urinalysis and Microscopic] Stat Lab 03/16/24 15:44 Ordered Medical Decision Narrative: Patient denies fever, chills or body aches, Denies being sexually active and denies hx of Kidney stones, discussed with patient about transfer to the ED for further work up and r/o Kidney stones and she declined at this time will start on Cefdnir, pyridium and give patient strict return precautions
[2024-03-16 15:54] LABS: Microscopic, Urine URINE MICROSCOPIC (MICROSCOPIC)
[2024-03-16 16:32] LABS: UTC Pregnancy Test, Urine Negative (Negative)
[2024-03-16 16:37] LABS: Appearance,Urine CLEAR (Clear); Bilirubin,Urine Negative (Negative); Blood, Urine 3+ (Negative); Color,Urine YELLOW (Yellow); Glucose,Urine (UA) Negative (Negative); Ketones,Urine 1+ (Negative); Leukocyte Esterase,Urine TRACE (Negative); Nitrate,Urine Negative (Negative); PH,Urine 5.5 (5.0-8.5); Protein,Urine Negative (Negative); Specific Gravity, Urine >= 1.030 (1.005-1.030); Urobilinogen,Urine 0.2 EU/dl (0.2)
[2024-03-16 16:48] LABS: Bacteria,Urine 3+ /lpf; RBC,Urine TNTC #/hpf (0-3); Squamous Epithelial Cell,Urine 20-50 #/hpf (0-5)
[2024-03-16 16:58] VITALS: BP 158/94; PULSE 64; RESP 19; TEMP 37.2; O2SAT 98
== END 2024-03-16 17:00 | disposition home or self-care (01) ==
PROVIDERS: Emergency Provider Nurse Practitioner; PCP Family Medicine
DX: N39.0 Urinary tract infection, site not specified (principal)
CPT/HCPCS: 81001; 81025; 87086; 99213; G0381